=== PATIENT | female | born 1985 | race Caucasian/White ===

== ENCOUNTER 2016-12-26 17:49 | Inpatient (IN) | payer BC, OTHER ==
[~2016-12-26] VITALS: Ht 167.6 cm; Wt 70.3 kg
[2016-12-27 23:44] LABS: *URINE HCG, QUAL NEGATIVE (NEGATIVE)
[2016-12-27] MEDS ORDERED: LOPERAMIDE HCL 2 MG CAPSULE PO PRN ×2 (23:45)
[2016-12-27] MEDS ORDERED: MAG HYDROX/AL HYDROX/SIMETH 30 ML LIQUID UDC PO PRN (23:45)
[2016-12-27] MEDS ORDERED: HYDROXYZINE PAMOATE 25 MG CAPSULE PO PRN (23:45)
[2016-12-27] MEDS ORDERED: BUPRENORPHINE HCL 2 MG TAB.SUBL SL PRN (23:45)
[2016-12-27] MEDS ORDERED: LORAZEPAM 1 MG TABLET PO ONE (23:45)
[2016-12-27] MEDS ORDERED: diphenhydrAMINE 50 MG CAPSULE PO PRN (23:45)
[2016-12-27] MEDS ORDERED: DICYCLOMINE HCL 20 MG TABLET PO PRN (23:45)
[2016-12-27] MEDS ORDERED: LORAZEPAM 1 MG TABLET PO PRN ×2 (23:45)
[2016-12-27] MEDS ORDERED: LORAZEPAM 2 MG/1 ML VIAL IM PRN (23:45)
[2016-12-27] MEDS ORDERED: MIRALAX 17 GM POWD.PACK PO PRN (23:45)
[2016-12-27] MEDS ORDERED: CLONIDINE HCL 0.1 MG TABLET PO PRN (23:45)
[2016-12-27] MEDS ORDERED: MAGNESIUM HYDROXIDE 30 ML LIQUID UDC PO PRN (23:45)
[2016-12-27 23:46] LABS: *AMPHETAMINE, URINE POSITIVE (NEGATIVE); *BARBITURATE, URINE NEGATIVE (NEGATIVE); *CANNABINOID, URINE POSITIVE (NEGATIVE); *COCCAINE, URINE POSITIVE (NEGATIVE); *OPIATE, URINE POSITIVE (NEGATIVE); *PHENCYCLIDINE SCREEN,URINE NEGATIVE (NEGATIVE)
[2016-12-28] VITALS (7 sets, daily range): BP systolic 88–108; BP diastolic 32–68
[2016-12-28] MEDS ORDERED: LORAZEPAM 1 MG TABLET ONE (00:54)
[2016-12-28 01:08] LABS: BASOPHILS # (AUTO) 0.1 K/uL (0.0-0.2); EOSINOPHILS # (AUTO) 0.2 K/uL (0.0-0.7); EOSINOPHILS % (AUTO) 4.6 % (0.0-7.0); MONOCYTES # (AUTO) 0.6 K/uL (0.1-1.30); RED CELL DISTRIBUTION WIDTH 13.6 % (11.5-14.5)
[2016-12-28 01:13] LABS: HEMOGLOBIN 11.7 g/dL (12.0-16.0); LYMPHOCYTES # (AUTO) 1.4 K/uL (0.8-4.8); LYMPHOCYTES % (AUTO) 28.1 % (20.5-51.5); MEAN CORPUSCULAR HGB CONC 34 g/dL (32.0-37.0); MEAN CORPUSCULAR VOLUME 81.3 fL (81.0-99.0); MONOCYTES % (AUTO) 12.7 % (0.0-11.0); NEUTROPHILS # (AUTO) 2.8 K/uL (1.8-8.9); NEUTROPHILS % (AUTO) 53.6 % (38.5-71.5); PLATELET COUNT (AUTO) 256 K/uL (150-450); RED BLOOD CELL COUNT(AUTO) 4.18 MIL/uL (4.20-5.40); WHITE BLOOD COUNT (AUTO) 5.1 K/uL (4.0-11.2)
[2016-12-28 01:25] LABS: ALANINE AMINOTRANSFERASE 18 U/L (14-59); ALBUMIN 4.2 g/dL (3.4-5.0); ALKALINE PHOSPHATASE 55 U/L (50-136); ASPARTATE AMINOTRANSFERASE 27 U/L (15-37); BILIRUBIN,TOTAL 0.8 mg/dL (0.2-1.0); CALCIUM 9.3 mg/dL (8.5-10.1); CARBON DIOXIDE 25 mmol/L (21-32); CHLORIDE 100 mmol/L (98-107); CREATININE 0.8 mg/dL (0.6-1.3); GFR 83 mL/min (>60); GLUCOSE 95 mg/dL (74-106); MAGNESIUM 1.7 mg/dL (1.8-2.4); POTASSIUM 3.5 mmol/L (3.5-5.1); SODIUM SERUM 134 mmol/L (136-145); TOTAL PROTEIN, SERUM 7.6 g/dL (6.4-8.2); UREA NITROGEN, BLOOD 11 mg/dL (7-18)
[2016-12-28 01:30] LABS: ETHANOL < 3 MG/DL (0-0)
[2016-12-28 01:35] LABS: THYROID STIMULATING HORMONE 1.052 mIU/mL (0.358-3.740)
[2016-12-28 01:49] LABS: HIV-1 p24 ANTIGEN NON REACTIVE (NONREACTIVE); HIV-1/2 ANTIBODY NON REACTIVE (NONREACTIVE)
[2016-12-28] MEDS ORDERED: BUPR100T6 PO ×2 (04:01→04:04)
[2016-12-28] MEDS ORDERED: FLUV100T3 PO (04:03)
[2016-12-28] MEDS ORDERED: TUBERCULIN,PURIF.PROT.DERIV. 5 TU/0.1 ML TEST ID ONE (09:00)
[2016-12-28] MEDS: METHOCARBAMOL 750 MG TABLET PO PRN ×2 (10:36→21:38)
[2016-12-28] MEDS: MULTIVITAMINS,THERAPEUTIC TABLET PO SCH (10:37)
[2016-12-28] MEDS: GABAPENTIN 300 MG CAPSULE PO SCH ×2 (10:37→21:32)
[2016-12-28] MEDS: LORAZEPAM 1 MG TABLET PO SCH ×4 (10:37→21:32)
[2016-12-28] MEDS: BUPRENORPHINE HCL 2 MG TAB.SUBL SL SCH ×4 (10:52→21:00)
[2016-12-28] MEDS ORDERED: LORAZEPAM 1 MG TABLET PO ONE (11:30)
[2016-12-28] MEDS: PROMETHAZINE HCL 25 MG/1 ML VIAL IM PRN (11:30)
[2016-12-28] MEDS ORDERED: PROMETHAZINE HCL 25 MG/1 ML VIAL IM ONE (11:30)
[2016-12-28] MEDS ORDERED: MAGNESIUM OXIDE 400 MG TABLET PO ONE (13:00)
[2016-12-28] MEDS ORDERED: IV NS 1000 ML 1,000 ML IV ONE (15:45)
[2016-12-28] MEDS: ONDANSETRON ODT 4 MG TAB.RAPDIS SL PRN (21:32)
[2016-12-29] VITALS: BP 83/51
[2016-12-29 08:00] VITALS: BP 75/53
[2016-12-29] MEDS: LORAZEPAM 1 MG TABLET PO SCH ×3 (08:10→20:47)
[2016-12-29] MEDS: MULTIVITAMINS,THERAPEUTIC TABLET PO SCH (08:10)
[2016-12-29] MEDS: GABAPENTIN 300 MG CAPSULE PO SCH ×2 (08:10→20:46)
[2016-12-29 08:30] VITALS: BP 95/63
[2016-12-29] MEDS: BUPRENORPHINE HCL 2 MG TAB.SUBL SL SCH ×3 (09:00→21:30)
[2016-12-29] MEDS: PANTOPRAZOLE SODIUM 40 MG VIAL IV SCH (11:52)
[2016-12-29] MEDS: IV NS 1000 ML 1,000 ML IV SCH ×2 (11:53→20:46)
[2016-12-29 12:00] VITALS: BP 99/63
[2016-12-29] MEDS: METHOCARBAMOL 750 MG TABLET PO PRN (13:05)
[2016-12-29 14:13] LABS: HCV AB >11.0 s/co ratio (0.0-0.9); HEPATITIS B CORE AB, IgM Negative (Negative); HEPATITIS B SURFACE AG Negative (Negative)
[2016-12-29 16:00] VITALS: BP 107/58
[2016-12-29 20:00] VITALS: BP 103/47
[2016-12-29] MEDS: IBUPROFEN 400 MG TABLET PO PRN (20:46)
[2016-12-30] VITALS: BP 105/61
[2016-12-30] MEDS: METHOCARBAMOL 750 MG TABLET PO PRN ×2 (00:12→21:36)
[2016-12-30] MEDS: IV NS 1000 ML 1,000 ML IV SCH (06:32)
[2016-12-30 08:09] VITALS: BP 107/62
[2016-12-30] MEDS: GABAPENTIN 300 MG CAPSULE PO SCH ×3 (08:12→21:36)
[2016-12-30] MEDS: BENZOCAINE/MENTH/CETYLPYRD LOZENGE MM PRN ×2 (08:12→18:00)
[2016-12-30] MEDS: LORAZEPAM 1 MG TABLET PO SCH ×3 (08:13→21:36)
[2016-12-30] MEDS: PANTOPRAZOLE SODIUM 40 MG VIAL IV SCH (08:13)
[2016-12-30] MEDS: MULTIVITAMINS,THERAPEUTIC TABLET PO SCH (08:13)
[2016-12-30] MEDS: IBUPROFEN 400 MG TABLET PO PRN ×2 (08:13→21:36)
[2016-12-30] MEDS ORDERED: BUPRENORPHINE HCL 2 MG TAB.SUBL SL SCH (09:00)
[2016-12-30] MEDS ORDERED: GUAIFENESIN/DEXTROMETHORPHAN 5 ML UDC PO PRN (11:30)
[2016-12-30] MEDS ORDERED: LEVOFLOXACIN 750 MG TABLET PO SCH (11:30)
[2016-12-30 13:14] VITALS: BP 111/60
[2016-12-30] MEDS ORDERED: IV NS 1000 ML 1,000 ML IV PRN (14:00)
[2016-12-30] MEDS ORDERED: AZITHROMYCIN 250 MG TABLET PO ONE (15:00)
[2016-12-30] MEDS: ONDANSETRON ODT 4 MG TAB.RAPDIS SL PRN (15:28)
[2016-12-30] MEDS: BUPRENORPHINE HCL 2 MG TAB.SUBL SL SCH ×2 (15:28→22:07)
[2016-12-30 17:59] VITALS: BP 106/65
[2016-12-30] MEDS: ACETAMINOPHEN 325 MG TABLET PO PRN (18:00)
[2016-12-30 20:00] VITALS: BP 108/55
[2016-12-30 20:43] LABS: CALCIUM 8.5 mg/dL (8.5-10.1); CREATININE 0.7 mg/dL (0.6-1.3); MAGNESIUM 1.4 mg/dL (1.8-2.4); PHOSPHOROUS 2.3 mg/dL (2.5-4.9); POTASSIUM 3.5 mmol/L (3.5-5.1)
[2016-12-30 21:01] LABS: BASOPHILS % (AUTO) 0.3 % (0.0-2.0); EOSINOPHILS # (AUTO) 0.1 K/uL (0.0-0.7); EOSINOPHILS % (AUTO) 0.9 % (0.0-7.0); HEMATOCRIT 32.6 % (37.0-47.0); HEMOGLOBIN 11.2 g/dL (12.0-16.0); LYMPHOCYTES # (AUTO) 0.6 K/uL (0.8-4.8); LYMPHOCYTES % (AUTO) 4.9 % (20.5-51.5); MEAN CORPUSCULAR HGB CONC 34 g/dL (32.0-37.0); MEAN CORPUSCULAR VOLUME 81.7 fL (81.0-99.0); MONOCYTES # (AUTO) 0.6 K/uL (0.1-1.30); MONOCYTES % (AUTO) 4.3 % (0.0-11.0); NEUTROPHILS # (AUTO) 11.7 K/uL (1.8-8.9); NEUTROPHILS % (AUTO) 89.6 % (38.5-71.5); PLATELET COUNT (AUTO) 203 K/uL (150-450); RED BLOOD CELL COUNT(AUTO) 3.99 MIL/uL (4.20-5.40); RED CELL DISTRIBUTION WIDTH 13.3 % (11.5-14.5)
[2016-12-30 21:45] VITALS: BP 106/63
[2016-12-30] MEDS: PROMETHAZINE HCL 25 MG/1 ML VIAL IM PRN (21:57)
[2016-12-30] MEDS ORDERED: MAGNESIUM OXIDE 400 MG TABLET PO ONE (22:30)
[2016-12-30] MEDS ORDERED: MAGNESIUM OXIDE 400 MG TABLET ONE (22:53)
[2016-12-30 23:20] LABS: FOLIC ACID 17.3 NG/ML (8.6-58.9)
[2016-12-31] VITALS (7 sets, daily range): BP systolic 101–113; BP diastolic 58–75
[2016-12-31] MEDS ORDERED: AZITHROMYCIN 250 MG TABLET PO SCH (09:00)
[2016-12-31 09:07] LABS: BILIRUBIN,TOTAL 0.8 mg/dL (0.2-1.0); CALCIUM 8.2 mg/dL (8.5-10.1); CREATININE 0.7 mg/dL (0.6-1.3); MAGNESIUM 1.4 mg/dL (1.8-2.4); POTASSIUM 3.5 mmol/L (3.5-5.1); TOTAL PROTEIN, SERUM 6.4 g/dL (6.4-8.2)
[2016-12-31] MEDS: MULTIVITAMINS,THERAPEUTIC TABLET PO SCH (09:07)
[2016-12-31] MEDS: LORAZEPAM 1 MG TABLET PO SCH ×4 (09:08→21:53)
[2016-12-31] MEDS: GABAPENTIN 300 MG CAPSULE PO SCH ×3 (09:08→21:54)
[2016-12-31] MEDS: BUPRENORPHINE HCL 2 MG TAB.SUBL SL SCH ×4 (09:08→21:54)
[2016-12-31] MEDS: PANTOPRAZOLE SODIUM 40 MG VIAL IV SCH (09:16)
[2016-12-31] MEDS ORDERED: NICOTINE POLACRILEX 4 MG GUM-PK OF TEN BC PRN (11:45)
[2016-12-31] MEDS ORDERED: METOCLOPRAMIDE HCL 10 MG TABLET PO PRN (13:15)
[2016-12-31] MEDS: PROMETHAZINE HCL 25 MG/1 ML VIAL IM PRN (13:22)
[2016-12-31] MEDS ORDERED: MAGNESIUM OXIDE 400 MG TABLET PO ONE (13:45)
[2016-12-31] MEDS ORDERED: QUETIAPINE FUMARATE 100 MG TABLET ONE (19:49)
[2016-12-31] MEDS ORDERED: LORAZEPAM 1 MG TABLET PO ONE (20:00)
[2016-12-31] MEDS ORDERED: IV NS 1000 ML 1,000 ML IV ONE (20:15)
[2016-12-31] MEDS: QUETIAPINE FUMARATE 100 MG TABLET PO SCH (21:00)
[2016-12-31] MEDS ORDERED: LEVOFLOXACIN 500 MG TABLET ONE (21:16)
[2016-12-31] MEDS ORDERED: CLINDAMYCIN HCL 300 MG CAPSULE ONE (21:21)
[2016-12-31] MEDS ORDERED: GABAPENTIN 100 MG CAPSULE ONE (21:50)
[2016-12-31] MEDS: LEVOFLOXACIN 500 MG TABLET PO SCH (21:53)
[2016-12-31] MEDS: CLINDAMYCIN HCL 300 MG CAPSULE PO SCH (21:54)
[2016-12-31] MEDS ORDERED: ACIDOPHILUS/BULGARICUS CHEW TAB GT SCH (22:00)
[2017-01-01 03:37] VITALS: BP 104/70
[2017-01-01] MEDS: CLINDAMYCIN HCL 300 MG CAPSULE PO SCH ×3 (06:24→21:34)
[2017-01-01] MEDS ORDERED: CLINDAMYCIN HCL 300 MG CAPSULE ONE (06:26)
[2017-01-01] MEDS: ACETAMINOPHEN 325 MG TABLET PO PRN (06:29)
[2017-01-01] MEDS: METHOCARBAMOL 750 MG TABLET PO PRN ×2 (06:29→14:45)
[2017-01-01 08:00] VITALS: BP 105/64
[2017-01-01 08:06] LABS: BASOPHILS % (AUTO) 0.2 % (0.0-2.0); EOSINOPHILS # (AUTO) 0.4 K/uL (0.0-0.7); EOSINOPHILS % (AUTO) 5.2 % (0.0-7.0); HEMOGLOBIN 10.8 g/dL (12.0-16.0); LYMPHOCYTES # (AUTO) 1.2 K/uL (0.8-4.8); LYMPHOCYTES % (AUTO) 13.9 % (20.5-51.5); MEAN CORPUSCULAR HEMOGLOBIN 27.8 uug (27.0-31.0); MEAN CORPUSCULAR HGB CONC 34 g/dL (32.0-37.0); MEAN CORPUSCULAR VOLUME 82.7 fL (81.0-99.0); MONOCYTES # (AUTO) 0.7 K/uL (0.1-1.30); MONOCYTES % (AUTO) 8.4 % (0.0-11.0); NEUTROPHILS # (AUTO) 6.1 K/uL (1.8-8.9); NEUTROPHILS % (AUTO) 72.3 % (38.5-71.5); PLATELET COUNT (AUTO) 197 K/uL (150-450); RED BLOOD CELL COUNT(AUTO) 3.87 MIL/uL (4.20-5.40); RED CELL DISTRIBUTION WIDTH 13.3 % (11.5-14.5); WHITE BLOOD COUNT (AUTO) 8.4 K/uL (4.0-11.2)
[2017-01-01 08:52] LABS: ALBUMIN 2.8 g/dL (3.4-5.0); BILIRUBIN,DIRECT 0.1 mg/dL (0.0-0.2); BILIRUBIN,TOTAL 0.4 mg/dL (0.2-1.0); CALCIUM 8.3 mg/dL (8.5-10.1); CREATININE 0.6 mg/dL (0.6-1.3); MAGNESIUM 1.6 mg/dL (1.8-2.4); PHOSPHOROUS 2.5 mg/dL (2.5-4.9); POTASSIUM 3.6 mmol/L (3.5-5.1); TOTAL PROTEIN, SERUM 6.3 g/dL (6.4-8.2)
[2017-01-01] MEDS: NICOTINE 14 MG/24HR PATCH TD SCH (09:00)
[2017-01-01] MEDS: ACIDOPHILUS/BULGARICUS CHEW TAB PO SCH ×3 (09:00→21:34)
[2017-01-01] MEDS: PANTOPRAZOLE SODIUM 40 MG VIAL IV SCH (09:00)
[2017-01-01] MEDS: PROMETHAZINE HCL 25 MG/1 ML VIAL IM PRN (09:42)
[2017-01-01] MEDS: MULTIVITAMINS,THERAPEUTIC TABLET PO SCH (09:42)
[2017-01-01] MEDS: GABAPENTIN 300 MG CAPSULE PO SCH ×3 (09:42→20:25)
[2017-01-01] MEDS: LORAZEPAM 1 MG TABLET PO SCH ×3 (09:42→20:24)
[2017-01-01] MEDS: BUPRENORPHINE HCL 2 MG TAB.SUBL SL SCH ×3 (09:43→20:26)
[2017-01-01 13:00] VITALS: BP 99/62
[2017-01-01] MEDS ORDERED: MAGNESIUM OXIDE 400 MG TABLET PO ONE (13:00)
[2017-01-01 16:55] VITALS: BP 103/63
[2017-01-01 20:00] VITALS: BP 112/62
[2017-01-01] MEDS: LEVOFLOXACIN 500 MG TABLET PO SCH (20:25)
[2017-01-01] MEDS: METHOCARBAMOL 750 MG TABLET PO SCH (20:26)
[2017-01-01] MEDS: QUETIAPINE FUMARATE 100 MG TABLET PO SCH (20:26)
[2017-01-02] MEDS: ACIDOPHILUS/BULGARICUS CHEW TAB PO SCH ×3 (07:00→22:38)
[2017-01-02] MEDS: CLINDAMYCIN HCL 300 MG CAPSULE PO SCH ×3 (07:06→22:38)
[2017-01-02] MEDS: PANTOPRAZOLE SODIUM 40 MG TABLET.DR PO SCH (07:07)
[2017-01-02] MEDS: ACETAMINOPHEN 325 MG TABLET PO PRN (07:08)
[2017-01-02 08:09] LABS: CALCIUM 8.5 mg/dL (8.5-10.1); CREATININE 0.7 mg/dL (0.6-1.3); MAGNESIUM 1.5 mg/dL (1.8-2.4); POTASSIUM 3.5 mmol/L (3.5-5.1)
[2017-01-02 08:18] LABS: BASOPHILS % (AUTO) 0.5 % (0.0-2.0); EOSINOPHILS # (AUTO) 0.3 K/uL (0.0-0.7); EOSINOPHILS % (AUTO) 4.2 % (0.0-7.0); HEMATOCRIT 30.7 % (37.0-47.0); HEMOGLOBIN 10.5 g/dL (12.0-16.0); LYMPHOCYTES # (AUTO) 1.2 K/uL (0.8-4.8); LYMPHOCYTES % (AUTO) 18.4 % (20.5-51.5); MEAN CORPUSCULAR HEMOGLOBIN 28.1 uug (27.0-31.0); MEAN CORPUSCULAR HGB CONC 34 g/dL (32.0-37.0); MEAN CORPUSCULAR VOLUME 82.2 fL (81.0-99.0); MONOCYTES # (AUTO) 0.4 K/uL (0.1-1.30); MONOCYTES % (AUTO) 6.8 % (0.0-11.0); NEUTROPHILS # (AUTO) 4.6 K/uL (1.8-8.9); NEUTROPHILS % (AUTO) 70.1 % (38.5-71.5); PLATELET COUNT (AUTO) 226 K/uL (150-450); RED BLOOD CELL COUNT(AUTO) 3.73 MIL/uL (4.20-5.40); RED CELL DISTRIBUTION WIDTH 13.1 % (11.5-14.5); WHITE BLOOD COUNT (AUTO) 6.5 K/uL (4.0-11.2)
[2017-01-02 08:34] VITALS: BP 106/70
[2017-01-02] MEDS: LORAZEPAM 1 MG TABLET PO SCH ×3 (08:35→20:38)
[2017-01-02] MEDS: MULTIVITAMINS,THERAPEUTIC TABLET PO SCH (08:35)
[2017-01-02] MEDS: METHOCARBAMOL 750 MG TABLET PO SCH (08:35)
[2017-01-02] MEDS: GABAPENTIN 300 MG CAPSULE PO SCH ×2 (08:35→15:18)
[2017-01-02] MEDS: BUPRENORPHINE HCL 2 MG TAB.SUBL SL SCH ×3 (08:36→20:40)
[2017-01-02] MEDS: NICOTINE 14 MG/24HR PATCH TD SCH (08:36)
[2017-01-02] MEDS ORDERED: PROMETHAZINE HCL 25 MG TABLET PO PRN (13:00)
[2017-01-02] MEDS ORDERED: BACLOFEN 20 MG TABLET PO PRN (13:00)
[2017-01-02 13:08] VITALS: BP 100/70
[2017-01-02] MEDS: PROMETHAZINE HCL 25 MG/1 ML VIAL IM PRN (13:14)
[2017-01-02] MEDS ORDERED: MAGNESIUM OXIDE 400 MG TABLET PO ONE (15:00)
[2017-01-02] MEDS: DICYCLOMINE HCL 20 MG TABLET PO SCH ×2 (15:19→20:38)
[2017-01-02 18:12] VITALS: BP 103/66
[2017-01-02 20:00] VITALS: BP 101/55
[2017-01-02] MEDS: LEVOFLOXACIN 500 MG TABLET PO SCH (20:38)
[2017-01-02] MEDS: QUETIAPINE FUMARATE 100 MG TABLET PO SCH (20:39)
[2017-01-02] MEDS ORDERED: GABAPENTIN 300 MG CAPSULE PO SCH (21:00)
[2017-01-03] MEDS: ONDANSETRON ODT 4 MG TAB.RAPDIS SL PRN (04:11)
[2017-01-03] MEDS: ACETAMINOPHEN 325 MG TABLET PO PRN (04:11)
[2017-01-03] MEDS: CLINDAMYCIN HCL 300 MG CAPSULE PO SCH ×3 (06:57→21:56)
[2017-01-03] MEDS: ACIDOPHILUS/BULGARICUS CHEW TAB PO SCH ×3 (06:57→21:56)
[2017-01-03] MEDS: PANTOPRAZOLE SODIUM 40 MG TABLET.DR PO SCH (06:58)
[2017-01-03 08:00] VITALS: BP 100/59
[2017-01-03] MEDS: NICOTINE 14 MG/24HR PATCH TD SCH ×2 (08:24→12:30)
[2017-01-03] MEDS: PROMETHAZINE HCL 25 MG/1 ML VIAL IM PRN ×2 (08:50→21:37)
[2017-01-03] MEDS: MULTIVITAMINS,THERAPEUTIC TABLET PO SCH (08:57)
[2017-01-03] MEDS: FERROUS SULFATE 325 MG TABEC PO SCH ×2 (08:57→21:57)
[2017-01-03] MEDS ORDERED: LORAZEPAM 1 MG TABLET PO SCH ×2 (09:00)
[2017-01-03] MEDS ORDERED: BUPRENORPHINE HCL 2 MG TAB.SUBL SL SCH ×2 (09:00)
[2017-01-03] MEDS: GABAPENTIN 300 MG CAPSULE PO SCH ×3 (09:00→21:56)
[2017-01-03] MEDS: DICYCLOMINE HCL 20 MG TABLET PO SCH ×3 (09:02→21:57)
[2017-01-03] MEDS: ASCORBIC ACID 250 MG TABLET PO SCH ×2 (09:03→21:57)
[2017-01-03 09:51] LABS: CALCIUM 8.9 mg/dL (8.5-10.1); CREATININE 0.6 mg/dL (0.6-1.3); MAGNESIUM 1.9 mg/dL (1.8-2.4); PHOSPHOROUS 4.3 mg/dL (2.5-4.9); POTASSIUM 3.8 mmol/L (3.5-5.1)
[2017-01-03 12:00] VITALS: BP 112/61
[2017-01-03] MEDS ORDERED: NICOTINE POLACRILEX 4 MG GUM-PK OF TEN BC PRN (12:30)
[2017-01-03] MEDS: LORAZEPAM 1 MG TABLET PO SCH ×2 (14:05→21:57)
[2017-01-03] MEDS: BUPRENORPHINE HCL 2 MG TAB.SUBL SL SCH ×3 (14:06→22:17)
[2017-01-03 16:00] VITALS: BP 115/65
[2017-01-03 20:00] VITALS: BP 91/53
[2017-01-03] MEDS: LEVOFLOXACIN 500 MG TABLET PO SCH (21:57)
[2017-01-03] MEDS: QUETIAPINE FUMARATE 100 MG TABLET PO SCH (22:00)
[2017-01-04] VITALS (7 sets, daily range): BP systolic 91–118; BP diastolic 49–72
[2017-01-04] MEDS: ONDANSETRON ODT 4 MG TAB.RAPDIS SL PRN (00:11)
[2017-01-04] MEDS: IBUPROFEN 400 MG TABLET PO PRN ×2 (00:11→21:37)
[2017-01-04] MEDS: CLINDAMYCIN HCL 300 MG CAPSULE PO SCH ×3 (07:06→21:37)
[2017-01-04] MEDS: PANTOPRAZOLE SODIUM 40 MG TABLET.DR PO SCH (07:06)
[2017-01-04] MEDS: ACIDOPHILUS/BULGARICUS CHEW TAB PO SCH ×3 (07:07→21:37)
[2017-01-04] MEDS: FERROUS SULFATE 325 MG TABEC PO SCH ×2 (08:32→21:36)
[2017-01-04] MEDS: CHOLECALCIFEROL 1,000 UNIT TABLET PO SCH (08:32)
[2017-01-04] MEDS: ASCORBIC ACID 250 MG TABLET PO SCH ×2 (08:32→21:37)
[2017-01-04] MEDS: DICYCLOMINE HCL 20 MG TABLET PO SCH ×3 (08:32→21:36)
[2017-01-04] MEDS: GABAPENTIN 300 MG CAPSULE PO SCH ×3 (08:32→21:36)
[2017-01-04] MEDS: MULTIVITAMINS,THERAPEUTIC TABLET PO SCH (08:32)
[2017-01-04] MEDS: NICOTINE 14 MG/24HR PATCH TD SCH (08:33)
[2017-01-04] MEDS ORDERED: BUPRENORPHINE HCL 2 MG TAB.SUBL SL SCH (09:00)
[2017-01-04] MEDS ORDERED: LORAZEPAM 1 MG TABLET PO SCH (09:00)
[2017-01-04 19:20] LABS: *AMPHETAMINE, URINE NEGATIVE (NEGATIVE); *BARBITURATE, URINE NEGATIVE (NEGATIVE); *CANNABINOID, URINE POSITIVE (NEGATIVE); *COCCAINE, URINE POSITIVE (NEGATIVE); *OPIATE, URINE POSITIVE (NEGATIVE); *PHENCYCLIDINE SCREEN,URINE NEGATIVE (NEGATIVE)
[2017-01-04] MEDS: QUETIAPINE FUMARATE 100 MG TABLET PO SCH (21:00)
[2017-01-04] MEDS ORDERED: DICY20TA28 PO (21:15)
[2017-01-04] MEDS ORDERED: LEVO500T15 PO (21:15)
[2017-01-04] MEDS ORDERED: Clindamycin Hcl PO (21:15)
[2017-01-04] MEDS ORDERED: ASCO250T5 PO (21:15)
[2017-01-04] MEDS ORDERED: Nicotine TD (21:15)
[2017-01-04] MEDS ORDERED: Gabapentin PO (21:15)
[2017-01-04] MEDS ORDERED: QUET100T PO (21:15)
[2017-01-04] MEDS ORDERED: ACID1TAB4 PO (21:15)
[2017-01-04] MEDS ORDERED: Baclofen PO (21:15)
[2017-01-04] MEDS ORDERED: CLON0.1T14 PO (21:15)
[2017-01-04] MEDS ORDERED: CHOL10002 PO (21:15)
[2017-01-04] MEDS ORDERED: HYDR-3895 PO (21:15)
[2017-01-04] MEDS ORDERED: FERR325T28 PO (21:15)
[2017-01-04] MEDS: LEVOFLOXACIN 500 MG TABLET PO SCH (21:36)
[2017-01-04] MEDS ORDERED: diphenhydrAMINE 50 MG CAPSULE PO PRN (22:30)
[2017-01-04] MEDS: PROMETHAZINE HCL 25 MG/1 ML VIAL IM PRN (22:50)
[2017-01-05] VITALS: BP 95/58
[2017-01-05] MEDS ORDERED: METHOCARBAMOL 750 MG TABLET PO ONE
[2017-01-05] MEDS ORDERED: HYDROXYZINE PAMOATE 25 MG CAPSULE PO ONE
[2017-01-05] MEDS ORDERED: GABAPENTIN 300 MG CAPSULE PO ONE (00:15)
[2017-01-05 06:00] VITALS: BP 95/56
[2017-01-05] MEDS: ACIDOPHILUS/BULGARICUS CHEW TAB PO SCH (06:16)
[2017-01-05] MEDS: CLINDAMYCIN HCL 300 MG CAPSULE PO SCH (06:16)
[2017-01-05] MEDS: PANTOPRAZOLE SODIUM 40 MG TABLET.DR PO SCH (07:56)
[2017-01-05 08:00] VITALS: BP 101/61
[2017-01-05] MEDS: NICOTINE 14 MG/24HR PATCH TD SCH (08:03)
[2017-01-05] MEDS: DICYCLOMINE HCL 20 MG TABLET PO SCH (08:31)
[2017-01-05] MEDS: MULTIVITAMINS,THERAPEUTIC TABLET PO SCH (08:31)
[2017-01-05] MEDS: GABAPENTIN 300 MG CAPSULE PO SCH (08:31)
[2017-01-05] MEDS: ASCORBIC ACID 250 MG TABLET PO SCH (08:31)
[2017-01-05] MEDS: FERROUS SULFATE 325 MG TABEC PO SCH (08:31)
[2017-01-05] MEDS: CHOLECALCIFEROL 1,000 UNIT TABLET PO SCH (08:31)
[2017-01-05] MEDS ORDERED: CALCIUM CARBONATE 500 MG TAB.CHEW PO SCH (09:00)
[2017-01-06 02:01] LABS: *AMPHETAMINE Positive (.); *BENZODIAZEPINES Positive (.); *CANNABINOID (THC) Positive (.); *COCAINE Positive (.); *CODEINE Negative (Cutoff=300); *HYDROMORPHONE Negative (Cutoff=300); *METHAMPHETAMINE Negative (Cutoff=500); *NORDIAZEPAM Positive (.); *OPIATES Positive ng/mL (Cutoff=300); *OXAZEPAM Positive (.)
== END 2017-01-05 10:35 | DRG 895 ==
LOC: SRC 12-27 20:46
PROVIDERS: ADMIT Internal Medicine; ATTEND Internal Medicine
PROC: HZ2ZZZZ Detoxification Services for Substance Abuse Treatment (ICD-10-PCS; principal; 2016-12-27)
PROC: HZ31ZZZ Individual Counseling for Substance Abuse Treatment, Behavioral (ICD-10-PCS; 2016-12-30)
PROC: HZ41ZZZ Group Counseling for Substance Abuse Treatment, Behavioral (ICD-10-PCS; 2016-12-31)
DX: F11.23 Opioid dependence with withdrawal (principal); J18.9 Pneumonia, unspecified organism; E87.1 Hypo-osmolality and hyponatremia; F13.232 Sedative, hypnotic or anxiolytic dependence with withdrawal with perceptual disturbance; F15.23 Other stimulant dependence with withdrawal; F16.10 Hallucinogen abuse, uncomplicated; E83.42 Hypomagnesemia; J02.0 Streptococcal pharyngitis; F32.9 Major depressive disorder, single episode, unspecified; F14.10 Cocaine abuse, uncomplicated; F60.3 Borderline personality disorder; D50.9 Iron deficiency anemia, unspecified; Z87.898 Personal history of other specified conditions; Z91.5 Personal history of self-harm; Z81.8 Family history of other mental and behavioral disorders; B19.20 Unspecified viral hepatitis C without hepatic coma; E55.9 Vitamin D deficiency, unspecified; E86.0 Dehydration; F17.210 Nicotine dependence, cigarettes, uncomplicated; Z87.442 Personal history of urinary calculi; Z88.2 Allergy status to sulfonamides; Z88.0 Allergy status to penicillin; F50.9 Eating disorder, unspecified; Z59.1 Inadequate housing; F41.9 Anxiety disorder, unspecified; F29 Unspecified psychosis not due to a substance or known physiological condition; R26.81 Unsteadiness on feet; F12.90 Cannabis use, unspecified, uncomplicated
CPT/HCPCS: 36415; 70030-TC; 71010; 80307; 80324; 80346; 80349; 80353; 80361; 82306; 82746; 83550; 83735; 84100; 84443; 84703; 85025; 86403; 86580; 86592; 86705; 86803; 87040; 87070; 87077; 87086; 87340; 87400; 87806; 93005; 97001; A4663; C9113; G6040-TC; J2550; J7030; J8597; Q0144; Q0162; Q0169